=== PATIENT | female | born 1970 | race African-American/Black ===

== ENCOUNTER 2018-07-11 09:28 | Inpatient (IN) | payer OTHER ==
[~2018-07-11] VITALS: Ht 165.1 cm; Wt 114.3 kg
[2018-07-11 09:30] VITALS: BP 144/86
[2018-07-11] MEDS ORDERED: COUMADIN 5 MG TA5 M1 PO (10:10)
[2018-07-11 10:16] LABS: HEMATOCRIT 38.4 % (37.0-47.0); HEMOGLOBIN 13.1 gm/dL (12.0-15.0); MCH 30.9 pg (26.0-34.0); MCHC 34.1 g/dL (28.0-37.0); MCV 90.4 fL (80.0-100.0); PLATELET COUNT 166 thou/uL (150-400); RBC 4.24 mil/uL (4.20-5.00); RDW 13.7 % (10.5-14.5); WBC 23.4 thou/uL (4.0-11.0)
[2018-07-11 10:26] LABS: URINE BILIRUBIN NEGATIVE (Negative); URINE BLOOD 2+ (Negative); URINE CLARITY CLEAR; URINE COLOR YELLOW; URINE GLUCOSE-RANDOM* NEGATIVE (Negative); URINE KETONES NEGATIVE (Negative); URINE LEUKOCYTES-REFLEX NEGATIVE (Negative); URINE NITRITE-REFLEX NEGATIVE (Negative); URINE PROTEIN (DIPSTICK) 1+ (Negative); URINE SPECIFIC GRAVITY 1.025 (1.005-1.035); URINE UROBILINOGEN 0.2 E.U./dl (0.2-1.0)
[2018-07-11 10:29] LABS: CALCIUM 9.3 mg/dL (8.5-10.1); POTASSIUM 5.1 mmol/L (3.5-5.1)
[2018-07-11 10:34] LABS: ALBUMIN 3.3 g/dL (3.4-5.0); TOTAL BILIRUBIN 0.9 mg/dL (<0.1-1.0)
[2018-07-11 10:36] LABS: CASTS None Seen /LPF (None Seen); MUCUS >6 Heavy strn/LPF (None Seen); SQUAMOUS >10 Many /LPF (0-3)
[2018-07-11 10:37] LABS: BACTERIA-REFLEX 1-9 Few /HPF (None Seen); CRYSTALS None Seen /LPF (None Seen); URINE RBC 3-10 Few /HPF (0-2); URINE WBC-REFLEX 6-15 Few /HPF (0-5)
[2018-07-11 11:28] LABS: URINE BILIRUBIN NEGATIVE (Negative); URINE BLOOD 2+ (Negative); URINE CLARITY CLEAR; URINE COLOR YELLOW; URINE GLUCOSE-RANDOM* NEGATIVE (Negative); URINE KETONES NEGATIVE (Negative); URINE LEUKOCYTES-REFLEX NEGATIVE (Negative); URINE NITRITE-REFLEX NEGATIVE (Negative); URINE PROTEIN (DIPSTICK) TRACE (Negative); URINE SPECIFIC GRAVITY >= 1.030 (1.005-1.035); URINE UROBILINOGEN 0.2 E.U./dl (0.2-1.0)
[2018-07-11 11:37] LABS: BACTERIA-REFLEX 1-9 Few /HPF (None Seen); CASTS None Seen /LPF (None Seen); CRYSTALS None Seen /LPF (None Seen); SQUAMOUS 4-10 Moderate /LPF (0-3); URINE RBC 0-2 Rare /HPF (0-2); URINE WBC-REFLEX 0-5 Rare /HPF (0-5)
[2018-07-11 14:36] VITALS: BP 119/68
[2018-07-11 15:21] VITALS: BP 146/78
[2018-07-11 17:08] LABS: INR 4.5; PROTIME 44.9 Seconds (9.3-11.4)
[2018-07-11 20:08] VITALS: BP 124/80
[2018-07-12 03:52] VITALS: BP 125/92
[2018-07-12 05:36] LABS: HEMATOCRIT 35.8 % (37.0-47.0); HEMOGLOBIN 11.8 gm/dL (12.0-15.0); MCH 30.2 pg (26.0-34.0); MCHC 32.9 g/dL (28.0-37.0); MCV 91.6 fL (80.0-100.0); RBC 3.91 mil/uL (4.20-5.00); RDW 14.2 % (10.5-14.5); WBC 13.2 thou/uL (4.0-11.0)
[2018-07-12 05:43] LABS: PROTIME 50.1 Seconds (9.3-11.4)
[2018-07-12 05:44] LABS: CALCIUM 9.1 mg/dL (8.5-10.1); CREATININE 0.9 mg/dL (0.6-1.0)
[2018-07-12 05:54] LABS: POTASSIUM 3.5 mmol/L (3.5-5.1)
[2018-07-12 08:00] VITALS: BP 144/93
[2018-07-12 16:48] VITALS: BP 134/82
[2018-07-12 19:00] VITALS: BP 134/69
[2018-07-13 03:29] VITALS: BP 148/88
[2018-07-13 07:50] VITALS: BP 149/88
[2018-07-13 07:56] VITALS: BP 120/59
[2018-07-13 08:44] LABS: ABSOLUTE NEUTROPHILS 4.6 thou/uL (1.4-8.2); BASOPHILS 0.3 % (0.0-2.0); EOSINOPHILS 0.3 % (0.0-3.0); HEMATOCRIT 34.6 % (37.0-47.0); HEMOGLOBIN 11.3 gm/dL (12.0-15.0); LYMPHOCYTES 32.4 % (24.0-44.0); MCH 30.1 pg (26.0-34.0); MCHC 32.6 g/dL (28.0-37.0); MCV 92.3 fL (80.0-100.0); MONOCYTES 6.4 % (1.0-8.0); PLATELET COUNT 159 thou/uL (150-400); POLYS 60.6 % (36.0-66.0); RBC 3.75 mil/uL (4.20-5.00); RDW 14.2 % (10.5-14.5); WBC 7.7 thou/uL (4.0-11.0)
[2018-07-13 09:04] LABS: CALCIUM 8.6 mg/dL (8.5-10.1); POTASSIUM 3.5 mmol/L (3.5-5.1)
[2018-07-13 15:49] VITALS: BP 145/99
[2018-07-13 19:55] VITALS: BP 122/58
[2018-07-14 04:44] VITALS: BP 122/85
[2018-07-14 05:50] LABS: ALBUMIN 2.7 g/dL (3.4-5.0); CALCIUM 8.8 mg/dL (8.5-10.1); CREATININE 1.2 mg/dL (0.6-1.0); PHOSPHORUS 3.2 mg/dL (2.5-4.9); POTASSIUM 3.3 mmol/L (3.5-5.1)
[2018-07-14 05:51] LABS: PROTIME 26.6 Seconds (9.3-11.4)
[2018-07-14 05:55] LABS: INR 2.6
[2018-07-14 07:29] VITALS: BP 139/83
[2018-07-14 15:28] VITALS: BP 144/88
[2018-07-14 20:34] VITALS: BP 148/89
[2018-07-15 05:30] VITALS: BP 106/61
[2018-07-15 05:35] LABS: ABSOLUTE NEUTROPHILS 5.7 thou/uL (1.4-8.2); BASOPHILS 0.5 % (0.0-2.0); EOSINOPHILS 0.5 % (0.0-3.0); HEMATOCRIT 34.3 % (37.0-47.0); HEMOGLOBIN 11.5 gm/dL (12.0-15.0); LYMPHOCYTES 27.6 % (24.0-44.0); MCH 30.7 pg (26.0-34.0); MCHC 33.6 g/dL (28.0-37.0); MCV 91.2 fL (80.0-100.0); PLATELET COUNT 187 thou/uL (150-400); POLYS 63.4 % (36.0-66.0); RBC 3.76 mil/uL (4.20-5.00); RDW 13.9 % (10.5-14.5); WBC 8.9 thou/uL (4.0-11.0)
[2018-07-15 05:41] LABS: CALCIUM 9.1 mg/dL (8.5-10.1); CREATININE 1.1 mg/dL (0.6-1.0); POTASSIUM 3.4 mmol/L (3.5-5.1)
[2018-07-15 07:35] VITALS: BP 147/86
[2018-07-15 13:18] LABS: INR 1.9; PROTIME 19.1 Seconds (9.3-11.4)
[2018-07-15] MEDS ORDERED: KEFLEX500 M1 PO (13:20)
[2018-07-15] MEDS ORDERED: NYSTATIN100000 UNI SWISH&SPIT (13:20)
[2018-07-15] MEDS ORDERED: CLOTRIMAZOLE-BE15 GM TOP (13:20)
[2018-07-15 15:55] VITALS: BP 156/92
[2018-07-15 19:21] VITALS: BP 146/92
[2018-07-16 04:43] VITALS: BP 127/74
[2018-07-16 06:18] LABS: ABSOLUTE NEUTROPHILS 5.9 thou/uL (1.4-8.2); BASOPHILS 0.4 % (0.0-2.0); EOSINOPHILS 0.7 % (0.0-3.0); HEMATOCRIT 33.8 % (37.0-47.0); HEMOGLOBIN 11.4 gm/dL (12.0-15.0); LYMPHOCYTES 22.4 % (24.0-44.0); MCH 30.8 pg (26.0-34.0); MCHC 33.8 g/dL (28.0-37.0); MCV 90.9 fL (80.0-100.0); PLATELET COUNT 196 thou/uL (150-400); POLYS 69.5 % (36.0-66.0); RBC 3.72 mil/uL (4.20-5.00); RDW 13.9 % (10.5-14.5); WBC 8.5 thou/uL (4.0-11.0)
[2018-07-16 06:31] LABS: ALBUMIN 2.8 g/dL (3.4-5.0); CALCIUM 9.3 mg/dL (8.5-10.1); CREATININE 1.3 mg/dL (0.6-1.0); POTASSIUM 3.1 mmol/L (3.5-5.1); TOTAL BILIRUBIN 0.6 mg/dL (<0.1-1.0); TOTAL PROTEIN 6.8 g/dL (6.4-8.2)
[2018-07-16 07:22] VITALS: BP 100/68
[2018-07-16 15:13] LABS: URINE BILIRUBIN NEGATIVE (Negative); URINE BLOOD NEGATIVE (Negative); URINE CLARITY CLEAR; URINE COLOR YELLOW; URINE GLUCOSE-RANDOM* NEGATIVE (Negative); URINE KETONES NEGATIVE (Negative); URINE LEUKOCYTES-REFLEX NEGATIVE (Negative); URINE NITRITE-REFLEX NEGATIVE (Negative); URINE PROTEIN (DIPSTICK) NEGATIVE (Negative); URINE UROBILINOGEN 0.2 E.U./dl (0.2-1.0)
[2018-07-16 16:10] VITALS: BP 126/80
[2018-07-16 19:21] VITALS: BP 147/83
[2018-07-17 07:05] LABS: ABSOLUTE NEUTROPHILS 7.1 thou/uL (1.4-8.2); BASOPHILS 0.5 % (0.0-2.0); HEMATOCRIT 35.1 % (37.0-47.0); HEMOGLOBIN 11.6 gm/dL (12.0-15.0); LYMPHOCYTES 25.3 % (24.0-44.0); MCH 30.4 pg (26.0-34.0); MCHC 33.2 g/dL (28.0-37.0); MCV 91.6 fL (80.0-100.0); MONOCYTES 5.9 % (1.0-8.0); PLATELET COUNT 216 thou/uL (150-400); POLYS 67.3 % (36.0-66.0); RBC 3.84 mil/uL (4.20-5.00); WBC 10.5 thou/uL (4.0-11.0)
[2018-07-17 07:13] LABS: CALCIUM 9.3 mg/dL (8.5-10.1); CREATININE 1.1 mg/dL (0.6-1.0); POTASSIUM 3.6 mmol/L (3.5-5.1)
[2018-07-17 08:13] VITALS: BP 163/99
[2018-07-17 11:45] LABS: INR 1.5; PROTIME 14.8 Seconds (9.3-11.4)
[2018-07-17] MEDS ORDERED: EXTRA STRENGTH85 GM TOP (13:58)
[2018-07-17] MEDS ORDERED: HYDROCODON-ACE1 EAC7 PO (13:58)
[2018-07-17] MEDS ORDERED: LIDOCAINE VISC100 ML SWISH&SPIT (13:58)
[2018-07-17] MEDS ORDERED: KEFLEX500 M1 PO (13:59)
[2018-07-17 14:10] VITALS: BP 163/99
== END 2018-07-17 16:00 | disposition home or self-care (01) | DRG 603 ==
LOC: ER 09:28 → EROBS 14:12 → 4W 14:12 → ENTRNSPT 07-17 15:48 → EDTRNSPTSTS 07-17 15:50 → 4W 07-17 16:00
PROVIDERS: Hospitalist; Internal Medicine; Nurse Practitioner Acute Care; Physician Assistant
DX: L03.116 Cellulitis of left lower limb (principal); B37.0 Candidal stomatitis; N17.9 Acute kidney failure, unspecified; I89.0 Lymphedema, not elsewhere classified; F12.90 Cannabis use, unspecified, uncomplicated; D72.829 Elevated white blood cell count, unspecified; B37.2 Candidiasis of skin and nail; Z90.710 Acquired absence of both cervix and uterus; Z88.6 Allergy status to analgesic agent; Z88.8 Allergy status to other drugs, medicaments and biological substances; Z86.718 Personal history of other venous thrombosis and embolism; Z79.899 Other long term (current) drug therapy
CPT/HCPCS: 10045; 10047